=== PATIENT | male | born 1980 | race Caucasian/White ===

== ENCOUNTER 2018-03-14 23:05 | Inpatient (IN) | payer MEDICAID, OTHER ==
--- NOTE | 2018-03-15 01:44 | ED ---
Psych HPI - General Chief Complaint: Psychiatric Symptoms Stated Complaint: Suicidal Time Seen by Provider: 03/15/18 00:30 Source: patient Mode of arrival: ambulatory - History of Present Illness Initial Comments: This patient is a 37-year-old man who presents with complaint that he has had worsening of his depression and has been feeling suicidal. He states is been getting worse over the past number days. Today he states that he felt strong urge to jump into traffic. At one point he was also holding an knife to his neck tonight. MD Complaint: suicidal ideation, feels depressed -: days(s) Associated Psychiatric Symptoms: depression, suicidal ideation History of same: Yes Quality: constant Improves With: none Worsens With: none Associated Symptoms: denies other symptoms - Related Data Home Medications Medication Instructions Recorded Confirmed Ibuprofen [Motrin] 800 mg PO DAILY PRN 03/14/18 03/15/18 Allergies Allergy/AdvReac Type Severity Reaction Status Date / Time No Known Allergies Allergy Verified 03/15/18 03:57 Review of Systems ROS Statement: Those systems with pertinent positive or pertinent negative responses have been documented in the HPI. ROS Other: All systems not noted in ROS Statement are negative. Constitutional: Denies: fever, chills Respiratory: Denies: cough, dyspnea Cardiovascular: Denies: chest pain, palpitations Gastrointestinal: Denies: abdominal pain Musculoskeletal: Denies: back pain Skin: Denies: rash Neurological: Denies: headache Psychiatric: Reports: anxiety, depression, suicidal thoughts. Denies: auditory hallucinations, visual hallucinations, homicidal thoughts Past Medical History Past Medical History: No Reported History History of Any Multi-Drug Resistant Organisms: None Reported Past Surgical History: No Surgical Hx Reported Past Psychological History: ADD/ADHD, Anxiety Smoking Status: Current every day smoker Past Alcohol Use History: None Reported Past Drug Use History: Marijuana, Prescription Drug Abuse General Exam Limitations: no limitations General appearance: alert, in no apparent distress Head exam: Present: atraumatic, normocephalic Eye exam: Present: normal appearance. Absent: scleral icterus, conjunctival injection Respiratory exam: Present: normal lung sounds bilaterally. Absent: respiratory distress, wheezes, rales, rhonchi, stridor Cardiovascular Exam: Present: regular rate, normal rhythm, normal heart sounds. Absent: systolic murmur, diastolic murmur, rubs, gallop GI/Abdominal exam: Present: soft. Absent: distended, tenderness, guarding, rebound, mass Extremities exam: Present: normal inspection, normal capillary refill. Absent: pedal edema, calf tenderness Back exam: Present: normal inspection. Absent: CVA tenderness (R), CVA tenderness (L) Neurological exam: Present: alert Psychiatric exam: Present: depressed, suicidal ideation. Absent: anxious, flat affect, manic, homicidal ideation Skin exam: Present: warm, dry, intact, normal color. Absent: rash Course Vital Signs 03/14/18 23:07 Temperature 98.2 F Pulse Rate 60 Respiratory 20 Rate Blood Pressure 135/84 O2 Sat by Pulse 97 Oximetry Medical Decision Making - Lab Data Result diagrams: 03/16/18 07:21 03/15/18 01:56 Lab Results 03/15/18 03/15/18 Range/Units 01:56 01:56 WBC 17.8 H (3.8-10.6) k/uL RBC 5.58 (4.30-5.90) m/uL Hgb 15.5 (13.0-17.5) gm/dL Hct 46.2 (39.0-53.0) % MCV 82.8 (80.0-100.0) fL MCH 27.8 (25.0-35.0) pg MCHC 33.6 (31.0-37.0) g/dL RDW 13.0 (11.5-15.5) % Plt Count 408 (150-450) k/uL Neutrophils % 90 % Lymphocytes % 5 % Monocytes % 4 % Eosinophils % 1 % Basophils % 0 % Neutrophils # 16.1 H (1.3-7.7) k/uL Lymphocytes # 0.8 L (1.0-4.8) k/uL Monocytes # 0.7 (0-1.0) k/uL Eosinophils # 0.1 (0-0.7) k/uL Basophils # 0.1 (0-0.2) k/uL Sodium 140 (137-145) mmol/L Potassium 4.4 (3.5-5.1) mmol/L Chloride 102 (98-107) mmol/L Carbon Dioxide 28 (22-30) mmol/L Anion Gap 10 mmol/L BUN 17 (9-20) mg/dL Creatinine 0.82 (0.66-1.25) mg/dL Est GFR (CKD-EPI)AfAm >90 (>60 ml/min/1.73 sqM) Est GFR (CKD-EPI)NonAf >90 (>60 ml/min/1.73 sqM) Glucose 113 H (74-99) mg/dL Calcium 9.9 (8.4-10.2) mg/dL Disposition Clinical Impression: Mood disorder Disposition: ADMITTED IP TO THIS HOSP Condition: Fair Is patient prescribed a controlled substance at d/c from ED?: No
[2018-03-15 02:33] LABS: Basophils # (A) 0.1 k/uL (0-0.2); Basophils % (A) 0 %; Eosinophils # (A) 0.1 k/uL (0-0.7); Eosinophils % (A) 1 %; HCT 46.2 % (39.0-53.0); HGB 15.5 gm/dL (13.0-17.5); Lymphocytes # (A) 0.8 k/uL (1.0-4.8); Lymphocytes % (A) 5 %; MCH 27.8 pg (25.0-35.0); MCHC 33.6 g/dL (31.0-37.0); MCV 82.8 fL (80.0-100.0); Mean Platelet Volume 6.8; Monocytes # (A) 0.7 k/uL (0-1.0); Monocytes % (A) 4 %; Neutrophils # (A) 16.1 k/uL (1.3-7.7); Neutrophils % (A) 90 %; Platelet Count 408 k/uL (150-450); RBC 5.58 m/uL (4.30-5.90); WBC 17.8 k/uL (3.8-10.6)
[2018-03-15 02:42] LABS: Anion Gap 10 mmol/L; Blood Urea Nitrogen 17 mg/dL (9-20); Calcium 9.9 mg/dL (8.4-10.2); Carbon Dioxide 28 mmol/L (22-30); Chloride 102 mmol/L (98-107); Glucose 113 mg/dL (74-99); Potassium 4.4 mmol/L (3.5-5.1); Sodium 140 mmol/L (137-145)
[2018-03-15] MEDS ORDERED: ZIPRASIDONE 20 MG VIAL IM PRN (03:48)
[2018-03-15] MEDS ORDERED: MAG HYDROX/AL HYDROX/SIMETH 30 ML CUP PO PRN (03:48)
[2018-03-15] MEDS ORDERED: MAGNESIUM HYDROXIDE 2,400 MG/10 ML CUP PO PRN (03:48)
[2018-03-15] MEDS ORDERED: LORazepam 2 MG/ML INJ IM PRN (03:51)
[2018-03-15 04:26] VITALS: BMI 22.3
[2018-03-15 08:51] LABS: Albumin 4.2 g/dL (3.5-5.0); Total Protein 7.4 g/dL (6.3-8.2)
[2018-03-15] MEDS ORDERED: NICOTINE 14MG/24HR PATCH TRANSDERM SCH (09:00)
--- NOTE | 2018-03-15 14:26 | P.PN ---
Subjective Progress Note Date: 03/15/18 The patient is a 37 yo M w/ a PMH of polysubstance abuse, depression, Hep C, chronic lower back pain, and active tobacco abuse presented to the ED w/ suicidality. The patient noted that he felt down about his situation and had considered jumping onto incoming traffic. He denied any specific inciting event but notes that he feels he has too much on his plate. He is presently homeless and doesn't have steady employment. He actively smokes 1 PPD and uses marijuana but noted that his last illicit substance use was a few years ago when he did heroin. He doesn't have a PMD and doesn't take any medications. He endorsed depressive thoughts but otherwise denied any active complaints including suicidal ideation, SOB, chest pain, fever, chills, nausea, vomiting, dizziness, dysuria, diarrhea, or constipation. Objective - Vital Signs Vital signs: Vital Signs Temp 98.0 F 03/15/18 04:21 Pulse 94 03/15/18 04:21 Resp 16 03/15/18 04:21 BP 104/71 03/15/18 04:21 Pulse Ox 97 03/15/18 04:21 Intake & Output 03/14/18 03/15/18 03/15/18 18:59 06:59 18:59 Weight 68.549 kg - Exam General: [non toxic], [no distress], [appears at stated age], [normal weight] Derm: [no unusual rashes/lesions] [no unusual ecchymoses], [warm], [dry] Head: [atraumatic], [normocephalic], [symmetric] Eyes: [EOMI], [no lid lag], [anicteric sclera], [pupils equal round reactive to light] ENT: [Nose and ears atraumatic], [no thrush], [no pharyngeal erythema] Neck: [No thyromegaly], [no cervical lymphadenopathy], [trachea midline], [ supple] Mouth: [no lip lesion], [mucus membranes moist] Cardiovascular: [S1S2 reg], [no murmur], [positive posterior tibial pulse bilateral], [no edema], [capillary refill less than 2 seconds] Lungs: [CTA bilateral], [no rhonchi, no rales] , [no accessory muscle use] Abdominal: [soft], [ nontender to palpation], [no guarding], [no appreciable organomegaly], [normal bowel sounds] Ext: [no gross muscle atrophy], [muscle strength 5 out of 5 in all 4 extremities grossly], [no contractures], Neuro: [ CN II-XI grossly intact], [light touch intact all 4 extremities], [ finger to nose within normal limits], Psych: [Alert], [oriented], [appropriate affect] - Labs CBC & Chem 7: 03/15/18 01:56 03/15/18 01:56 Labs: Abnormal Lab Results - Last 24 Hours (Table) 03/15/18 03/15/18 03/15/18 Range/Units 01:56 01:56 08:27 WBC 17.8 H (3.8-10.6) k/uL Neutrophils # 16.1 H (1.3-7.7) k/uL Lymphocytes # 0.8 L (1.0-4.8) k/uL Glucose 113 H (74-99) mg/dL LDL Cholesterol, Calc 115 H (0-99) mg/dL HDL Cholesterol 39 L (40-60) mg/dL Assessment and Plan Plan: Tobacco abuse -Counseled on tobacco cessation -Requested a large nicotine patch. Will prescribe. Polysubstance abuse -Will order U-Tox Hx of Hep C -Never seen by GI -Will need outpatient f/u -Advised patient on importance of f/u and options available to him Depression w/ suicidal ideation -As per psychiatry Leukocytosis -No active signs of infection -Will repeat Hyperglycemia -A1C pending Thank you for allowing us to participate in the care of this patient. We will follow peripherally. Do not hesitate to contact us with questions. Someone can be reached from the [facility] hospitalist group at all hours of the day at [phone].
--- NOTE | 2018-03-15 19:02 | P.HP ---
Psychiatric H&P - . H&P Date: 03/15/18 History & Physical: Allergies Allergy/AdvReac Type Severity Reaction Status Date / Time No Known Allergies Allergy Verified 03/15/18 03:57 Vital Signs Temp 98.0 F 03/15/18 04:21 Pulse 94 03/15/18 04:21 Resp 16 03/15/18 04:21 BP 104/71 03/15/18 04:21 Pulse Ox 97 03/15/18 04:21 Intake & Output 03/14/18 03/15/18 03/15/18 18:59 06:59 18:59 Weight 68.549 kg Laboratory Last Values WBC 17.8 k/uL (3.8-10.6) H 03/15/18 01:56 RBC 5.58 m/uL (4.30-5.90) 03/15/18 01:56 Hgb 15.5 gm/dL (13.0-17.5) 03/15/18 01:56 Hct 46.2 % (39.0-53.0) 03/15/18 01:56 MCV 82.8 fL (80.0-100.0) 03/15/18 01:56 MCH 27.8 pg (25.0-35.0) 03/15/18 01:56 MCHC 33.6 g/dL (31.0-37.0) 03/15/18 01:56 RDW 13.0 % (11.5-15.5) 03/15/18 01:56 Plt Count 408 k/uL (150-450) 03/15/18 01:56 Neutrophils % 90 % 03/15/18 01:56 Lymphocytes % 5 % 03/15/18 01:56 Monocytes % 4 % 03/15/18 01:56 Eosinophils % 1 % 03/15/18 01:56 Basophils % 0 % 03/15/18 01:56 Neutrophils # 16.1 k/uL (1.3-7.7) H 03/15/18 01:56 Lymphocytes # 0.8 k/uL (1.0-4.8) L 03/15/18 01:56 Monocytes # 0.7 k/uL (0-1.0) 03/15/18 01:56 Eosinophils # 0.1 k/uL (0-0.7) 03/15/18 01:56 Basophils # 0.1 k/uL (0-0.2) 03/15/18 01:56 Sodium 140 mmol/L (137-145) 03/15/18 01:56 Potassium 4.4 mmol/L (3.5-5.1) 03/15/18 01:56 Chloride 102 mmol/L (98-107) 03/15/18 01:56 Carbon Dioxide 28 mmol/L (22-30) 03/15/18 01:56 Anion Gap 10 mmol/L 03/15/18 01:56 BUN 17 mg/dL (9-20) 03/15/18 01:56 Creatinine 0.82 mg/dL (0.66-1.25) 03/15/18 01:56 Est GFR (CKD-EPI)AfAm >90 (>60 ml/min/1.73 sqM) 03/15/18 01:56 Est GFR (CKD-EPI)NonAf >90 (>60 ml/min/1.73 sqM) 03/15/18 01:56 Glucose 113 mg/dL (74-99) H 03/15/18 01:56 Calcium 9.9 mg/dL (8.4-10.2) 03/15/18 01:56 Total Bilirubin 1.0 mg/dL (0.2-1.3) 03/15/18 08:27 Conjugated Bilirubin 0.0 mg/dL (0.0-0.3) 03/15/18 08:27 Unconjugated Bilirubin 1.0 mg/dL (0.0-1.1) 03/15/18 08:27 Delta Bilirubin 0.0 mg/dL (0.0-0.2) 03/15/18 08:27 AST 19 U/L (17-59) 03/15/18 08:27 ALT 21 U/L (21-72) 03/15/18 08:27 Alkaline Phosphatase 68 U/L (38-126) 03/15/18 08:27 Total Protein 7.4 g/dL (6.3-8.2) 03/15/18 08:27 Albumin 4.2 g/dL (3.5-5.0) 03/15/18 08:27 Triglycerides 137 mg/dL (<150) 03/15/18 08:27 Cholesterol 181 mg/dL (<200) 03/15/18 08:27 LDL Cholesterol, Calc 115 mg/dL (0-99) H 03/15/18 08:27 HDL Cholesterol 39 mg/dL (40-60) L 03/15/18 08:27 TSH 0.610 mIU/L (0.465-4.680) 03/15/18 08:27 03/15/18 18:57 Chief Complaint : " Suicidal attempt" HPI: The patient presented with worsening depression and suicidal attempt. Reportedly he ran into traffic to kill himself. He has been feeling very stressed out due to family and financial issues. He has been not sleeping good. He has never seen a psychiatrist. He did some heroin few days ago and has been doing marijuana on regular basis. Denies symptoms of roberto, psychoses or OCD to me. PAST PSYCHIATRIC HISTORY: Depression ALLERGIES: NO KNOWN DRUG ALLERGIES MEDICATIONS: None CHEMICAL DEPENDENCY HISTORY: Marijuana and heroin use. FAMILY PSYCHIATRIC HISTORY: Unknown SOCIAL HISTORY: The patient lives with a friend MENTAL STATUS EXAM: The patient is an average height and built male appearing his stated age. Poor eye contact. Minimally interactive. Speech soft tone. Mood depressed and anxious with congruent affect. Has suicidal ideation. No symptoms of psychoses. Has poor insight and poor judgment STRENGTHS/WEAKNESSES: Housing, Financial INTELLECTUAL FUNCTIONING: average IMPRESSIONS: [] 1. Major Depressive Disorder, severe recurrent without psychotic features PLAN: The patient has been admitted to the mental health unit in voluntarily. Will start trial of Wellbutrin XL 150 mg po qam. He will be seen by internal medicine for routine history and physical exam. Social work will meet with the patient to complete a psychosocial assessment. We will monitor him for safety and encourage participation in the milieu. Vital signs reviewed.
[2018-03-15 20:22] LABS: Hemoglobin A1C 6.2 % (4.0-6.0)
[2018-03-16 07:47] LABS: HCT 48.4 % (39.0-53.0); HGB 15.8 gm/dL (13.0-17.5); MCH 27.6 pg (25.0-35.0); MCHC 32.7 g/dL (31.0-37.0); MCV 84.5 fL (80.0-100.0); Mean Platelet Volume 6.3; Platelet Count 425 k/uL (150-450); RBC 5.73 m/uL (4.30-5.90); RDW 13.2 % (11.5-15.5); WBC 8.6 k/uL (3.8-10.6)
[2018-03-16] MEDS: buPROPion XL 150 MG TAB.ER.24H PO SCH (08:48)
[2018-03-16] MEDS: NICOTINE 21MG/24HR PATCH TRANSDERM SCH (08:48)
--- NOTE | 2018-03-16 11:52 | P.PN ---
Progress Note - Text Progress Note Date: 03/16/18 Found him still very depressed [place]. Isolating andwithdrawing. Reports worsening anxiety MENTAL STATUS EXAM: The patient is an average height and built male appearing his stated age. Poor eye contact. Minimally interactive. Speech soft tone. Mood depressed and anxious with congruent affect. Has suicidal ideation. No symptoms of psychoses. Has poor insight and poor judgment STRENGTHS/WEAKNESSES: Housing, Financial INTELLECTUAL FUNCTIONING: average IMPRESSIONS: [] 1. Major Depressive Disorder, severe recurrent without psychotic features PLAN: The patient has been admitted to the mental health unit in voluntarily. Will start trial of Wellbutrin XL 150 mg po qam. He will be seen by internal medicine for routine history and physical exam. Social work will meet with the patient to complete a psychosocial assessment. We will monitor him for safety and encourage participation in the milieu. Vital signs reviewed.
[2018-03-17] MEDS: buPROPion XL 150 MG TAB.ER.24H PO SCH (07:46)
[2018-03-17] MEDS: NICOTINE 21MG/24HR PATCH TRANSDERM SCH (07:46)
[2018-03-17] MEDS: ACETAMINOPHEN TAB 325 MG TAB PO PRN (13:46)
--- NOTE | 2018-03-17 16:52 | P.PN ---
Progress Note - Text Progress Note Date: 03/17/18 Found him feeling little better. His mood has started improving. More interactive and started going to some groups. Still reports worsening anxiety MENTAL STATUS EXAM: The patient is an average height and built male appearing his stated age. Poor eye contact. Minimally interactive. Speech soft tone. Mood depressed and anxious with congruent affect. Has suicidal ideation. No symptoms of psychoses. Has poor insight and poor judgment STRENGTHS/WEAKNESSES: Housing, Financial INTELLECTUAL FUNCTIONING: average IMPRESSIONS: [] 1. Major Depressive Disorder, severe recurrent without psychotic features PLAN: Will continue to adjust medications accordingly
[2018-03-17] MEDS: LORazepam 1 MG TAB PO PRN (16:59)
[2018-03-18] MEDS: LORazepam 1 MG TAB PO PRN ×4 (00:04→23:04)
[2018-03-18] MEDS: NICOTINE 21MG/24HR PATCH TRANSDERM SCH (08:20)
[2018-03-18] MEDS: buPROPion XL 150 MG TAB.ER.24H PO SCH (08:20)
[2018-03-18] MEDS: ACETAMINOPHEN TAB 325 MG TAB PO PRN ×2 (08:21→21:11)
--- NOTE | 2018-03-18 11:48 | P.PN ---
Progress Note - Text Progress Note Date: 03/18/18 Found him in fair mood. His mood has started improving. More interactive and started going to some groups. Still reports worsening anxiety MENTAL STATUS EXAM: The patient is an average height and built male appearing his stated age. Poor eye contact. Minimally interactive. Speech soft tone. Mood depressed and anxious with congruent affect. Has no suicidal ideation. No symptoms of psychoses. Has poor insight and poor judgment STRENGTHS/WEAKNESSES: Housing, Financial INTELLECTUAL FUNCTIONING: average IMPRESSIONS: [] 1. Major Depressive Disorder, severe recurrent without psychotic features PLAN: Will continue to adjust medications accordingly
[2018-03-19] MEDS: buPROPion XL 150 MG TAB.ER.24H PO SCH (08:13)
[2018-03-19] MEDS: NICOTINE 21MG/24HR PATCH TRANSDERM SCH (08:13)
[2018-03-19] MEDS: ACETAMINOPHEN TAB 325 MG TAB PO PRN (08:13)
[2018-03-19] MEDS: LORazepam 1 MG TAB PO PRN (08:13)
--- NOTE | 2018-03-19 12:12 | P.PN ---
Subjective Progress Note Date: 03/19/18 Principal diagnosis: Bipolar affective disorder and history of ADHD I have high anxiety and flooding of thoughts with racing thoughts. Objective - Vital Signs Vital signs: Vital Signs Temp 97.8 F 03/19/18 06:22 Pulse 66 03/19/18 06:22 Resp 16 03/19/18 06:22 BP 136/71 03/19/18 06:22 Pulse Ox 97 03/15/18 04:21 - Labs CBC & Chem 7: 03/16/18 07:21 03/15/18 01:56 Assessment and Plan (1) Bipolar 1 disorder with moderate roberto Narrative/Plan: Chief Complaint : " Suicidal attempt" HPI: The patient presented with worsening depression and suicidal attempt. Reportedly he ran into traffic to kill himself. He has been feeling very stressed out due to family and financial issues. He has been not sleeping good. He has never seen a psychiatrist. He did some heroin few days ago and has been doing marijuana on regular basis. Denies symptoms of roberto, psychoses or OCD to me. PAST PSYCHIATRIC HISTORY: Depression ALLERGIES: NO KNOWN DRUG ALLERGIES MEDICATIONS: None CHEMICAL DEPENDENCY HISTORY: Marijuana and heroin use. FAMILY PSYCHIATRIC HISTORY: Unknown SOCIAL HISTORY: The patient lives with a friend MENTAL STATUS EXAM: The patient is an average height and built male appearing his stated age. Poor eye contact. Minimally interactive. Speech soft tone. Mood depressed and anxious with congruent affect. Has suicidal ideation. No symptoms of psychoses. Has poor insight and poor judgment STRENGTHS/WEAKNESSES: Housing, Financial he is living in a motel room and needs to check out by 03/21/2018 and will go to her grandmother's after the [place] where he gets his medications at [facility] INTELLECTUAL FUNCTIONING: average Current Visit: Yes Status: Acute Code(s): F31.12 - BIPOLAR DISORD, CRNT EPISODE MANIC W/O PSYCH FEATURES, MOD SNOMED Code(s): 30288079 Plan: Lamictal 25 mg by mouth daily at bedtime, stop Wellbutrin, Catapres 0.1 mg twice a day for anxiety and PTSD Time with Patient: Less than 30
[2018-03-19] MEDS: IBUPROFEN 600 MG TAB PO PRN (16:15)
[2018-03-19] MEDS: cloNIDine HCL 0.1 MG TAB PO SCH (20:14)
[2018-03-19] MEDS ORDERED: lamoTRIgine 25 MG TAB PO SCH (21:00)
[2018-03-20 06:30] VITALS: BP 117/67; PULSE 77; RESP 18; TEMP 97.5
[2018-03-20] MEDS: NICOTINE 21MG/24HR PATCH TRANSDERM SCH (08:16)
[2018-03-20] MEDS: cloNIDine HCL 0.1 MG TAB PO SCH (08:16)
[2018-03-20] MEDS: IBUPROFEN 600 MG TAB PO PRN (08:17)
[2018-03-20] MEDS ORDERED: NICOTINE POLACRILEX 2 MG GUM BUCCAL PRN (11:06)
[2018-03-20] MEDS ORDERED: MENTHOL (NICE) LOZENGE MUCOUS MEM PRN (11:07)
--- NOTE | 2018-03-20 11:20 | P.DS ---
Providers Date of admission: 03/15/18 03:29 Expected date of discharge: 03/20/18 Attending physician: Lenny Agarwal DO Consults: 03/15/18 03:48 Consult Physician Routine Consulting Provider: Sagrario Flanagan Consult Reason/Comments: For H & P for Medical Follow Up Do you want consulting provider notified?: Yes Primary care physician: Stated None - Discharge Diagnosis(es) (1) Bipolar 1 disorder with moderate roberto Chief Complaint : " Suicidal attempt" HPI: The patient presented with worsening depression and suicidal attempt. Reportedly he ran into traffic to kill himself. He has been feeling very stressed out due to family and financial issues. He has been not sleeping good. He has never seen a psychiatrist. He did some heroin few days ago and has been doing marijuana on regular basis. Denies symptoms of roberto, psychoses or OCD to me. PAST PSYCHIATRIC HISTORY: Depression ALLERGIES: NO KNOWN DRUG ALLERGIES MEDICATIONS: None CHEMICAL DEPENDENCY HISTORY: Marijuana and heroin use. FAMILY PSYCHIATRIC HISTORY: Unknown SOCIAL HISTORY: The patient lives with a friend MENTAL STATUS EXAM: The patient is an average height and built male appearing his stated age. Poor eye contact. Minimally interactive. Speech soft tone. Mood depressed and anxious with congruent affect. Has suicidal ideation. No symptoms of psychoses. Has poor insight and poor judgment STRENGTHS/WEAKNESSES: Housing, Financial he is living in a motel room and needs to check out by 03/21/2018 and will go to her grandmother's after the [place] where he [facility] INTELLECTUAL FUNCTIONING: average 03/15/18 01:56 Labs: Abnormal Lab Results - Last 24 Hours (Table) 03/15/18 03/15/18 03/15/18 Range/Units 01:56 01:56 08:27 WBC 17.8 H (3.8-10.6) k/uL Neutrophils # 16.1 H (1.3-7.7) k/uL Lymphocytes # 0.8 L (1.0-4.8) k/uL Glucose 113 H (74-99) mg/dL LDL Cholesterol, Calc 115 H (0-99) mg/dL HDL Cholesterol 39 L (40-60) mg/dL Medical Assessment and Plan Plan: Tobacco abuse -Counseled on tobacco cessation -Requested a large nicotine patch. Will prescribe. Polysubstance abuse -Will order U-Tox Hx of Hep C -Never seen by GI -Will need outpatient f/u -Advised patient on importance of f/u and options available to him Current Visit: Yes Status: Acute Hospital Course: Client was admitted on 03/15/2018 and was formal voluntary on [place] psychiatric [place] [facility] [place] [facility] and was placed on 15 minute checks and usual protocol for the floor. He was started on mood stabilizer Lamictal 25 mg by mouth daily at bedtime, and tried on Wellbutrin without any success and stopped on 2017, was placed on Catapres 0.1 mg 3 times a day which helped decrease his anxiety. He would do well in groups, interacted with staff appropriately, and was not felt to be suicidal homicidal at the time of discharge. His plan is to go to his grandmother's house and have follow-up care and [facility]. There was more secondary gain than primary problem. Mental status examination the time of discharge: The patient presents alert, pleasant, and cooperative. There calmly seated without any agitated behavior. [He] reports that [his] mood is good. Affect is congruent and euthymic. [He] deny having any suicidal or homicidal ideation intent or plan. [He] denies any auditory or visual hallucinations. There is no evidence of any delusional thought content. [His] thought process is linear and goal-directed. [His] speech is fluent and nonpressured. [His] memory and concentration is grossly intact for the purposes of this session. Patient Condition at Discharge: Fair Plan - Discharge Summary New Discharge Prescriptions: New cloNIDine HCL [Catapres] 0.1 mg PO BID 30 Days #60 tab lamoTRIgine [LaMICtal] 25 mg PO 2100 30 Days #30 tab Menthol [Nice Cough Drops] 1 each MUCOUS MEM Q2H PRN 30 Days #60 lozenge PRN Reason: Sore Throat Discontinued Ibuprofen [Motrin] 800 mg PO DAILY PRN PRN Reason: Pain Discharge Medication List Menthol [Nice Cough Drops] 1 each MUCOUS MEM Q2H PRN 30 Days #60 lozenge [Rx] cloNIDine HCL [Catapres] 0.1 mg PO BID 30 Days #60 tab 03/20/18 [Rx] lamoTRIgine [LaMICtal] 25 mg PO 2100 30 Days #30 tab 03/20/18 [Rx] Follow up Appointment(s)/Referral(s): other,other\\ [Other] - 1 Week [facility] [NON-STAFF] - 1 Week Patient Instructions/Handouts: How to Stop Smoking (GEN), Bipolar Disorder (GEN ) Activity/Diet/Wound Care/Special Instructions: Activity and diet as tolerated. Avoid the use of street drugs and alcohol. Take all medications as prescribed. When you are in need of refills on your medications please contact your medical provider and/or outpatient psychiatrist to have this done. Please go to scheduled outpatient appointment for aftercare treatment. If symptoms return or become worse, call the crisis line at [phone] and/or go to the nearest emergency room for evaluation. Discharge Disposition: HOME SELF-CARE
== END 2018-03-20 13:11 | disposition home or self-care (01) | DRG 885 ==
LOC: EC 23:05 → 3MHU 03-15 03:29
PROVIDERS: ADMIT Psychiatry & Neurology Psychiatry; ATTEND Psychiatry & Neurology Psychiatry
DX: F31.2 Bipolar disorder, current episode manic severe with psychotic features (principal); R45.851 Suicidal ideations; F17.200 Nicotine dependence, unspecified, uncomplicated; F41.9 Anxiety disorder, unspecified; Z59.0 Homelessness; Z79.1 Long term (current) use of non-steroidal anti-inflammatories (NSAID); R73.9 Hyperglycemia, unspecified; F90.9 Attention-deficit hyperactivity disorder, unspecified type; B19.20 Unspecified viral hepatitis C without hepatic coma
CPT/HCPCS: 36415; 80048; 80061; 80076; 82075; 83036; 84443; 85025; 85027; 99285

== ENCOUNTER 2019-11-13 14:10 | Emergency (ER) | payer OTHER ==
[2019-11-13 14:18] VITALS: BP 131/83; PULSE 78; RESP 17; TEMP 100.1
[2019-11-13] MEDS ORDERED: SODIUM CHLORIDE 0.9% 500 ML 500 ML IV STA (14:20)
[2019-11-13 15:25] LABS: Basophils # (A) 0.1 k/uL (0-0.2); Basophils % (A) 1 %; Eosinophils # (A) 0.1 k/uL (0-0.7); Eosinophils % (A) 1 %; HCT 42.9 % (39.0-53.0); Lymphocytes # (A) 2.3 k/uL (1.0-4.8); Lymphocytes % (A) 27 %; MCHC 32.7 g/dL (31.0-37.0); MCV 79.4 fL (80.0-100.0); Mean Platelet Volume 6.7; Monocytes # (A) 0.6 k/uL (0-1.0); Monocytes % (A) 7 %; Neutrophils # (A) 5.2 k/uL (1.3-7.7); Neutrophils % (A) 61 %; Platelet Count 399 k/uL (150-450); RDW 14.5 % (11.5-15.5); WBC 8.6 k/uL (3.8-10.6)
--- NOTE | 2019-11-13 15:34 | XR ---
EXAMINATION TYPE: XR KUB DATE OF EXAM: 11/13/2019 COMPARISON: NONE HISTORY: Pain TECHNIQUE: Single supine KUB image of the abdomen is obtained FINDINGS: Small bowel demonstrates no evidence for dilatation or air fluid levels. Gas and fecal material is seen in non-distended colon. No convincing evidence for pneumoperitoneum. No unusual calcifications. The lung bases are clear. The osseous structures are intact. IMPRESSION: 1. Overall nonobstructive bowel gas pattern.
[2019-11-13] MEDS ORDERED: INSULIN REGULAR 100 UNIT/ML VIAL IV ONE (15:35)
[2019-11-13 15:36] LABS: Amphetamine Screen,Urine Not Detected (NotDetected); Barbiturate Screen,Urine Not Detected (NotDetected); Benzodiazepines Screen,Urine Not Detected (NotDetected); Cocaine Screen,Urine Not Detected (NotDetected); Methadone Screen, Urine Not Detected (NotDetected); Opiate Screen,Urine Not Detected (NotDetected); Oxycodone Screen, Urine Not Detected (NotDetected); Phencyclidine Screen,Urine Not Detected (NotDetected); Tricyclic Antidepressant,Urine Not Detected (NotDetected); Urn Cannabinoid Scrn Not Detected (NotDetected)
[2019-11-13 15:37] LABS: ALT 35 U/L (4-49); AST 24 U/L (17-59); Acetaminophen <10.0 ug/mL; African American GFR (CKD) >90 (>60 ml/min/1.73 sqM); Albumin 3.9 g/dL (3.5-5.0); Alcohol <10 mg/dL; Alkaline Phosphatase 78 U/L (38-126); Anion Gap 7 mmol/L; Blood Urea Nitrogen 19 mg/dL (9-20); Calcium 9.2 mg/dL (8.4-10.2); Carbon Dioxide 26 mmol/L (22-30); Chloride 104 mmol/L (98-107); Creatine Kinase 38 U/L (55-170); Glucose 91 mg/dL (74-99); Non-African American GFR(CKD) >90 (>60 ml/min/1.73 sqM); Potassium 3.8 mmol/L (3.5-5.1); Salicylate <1.0 mg/dL; Sodium 137 mmol/L (137-145); Total Bilirubin 0.5 mg/dL (0.2-1.3); Total Protein 6.9 g/dL (6.3-8.2)
--- NOTE | 2019-11-13 16:44 | ED ---
Recheck HPI - General Chief Complaint: Recheck/Abnormal Lab/Rx Stated Complaint: poss overdose Time Seen by Provider: 11/13/19 14:16 Source: patient, police, EMS Mode of arrival: EMS - History of Present Illness Initial Comments: 39-year-old IV drug user presented for possible overdose. Patient was found in his cell by officer and nexted sternal rubs to be aroused patient states that the drugs that he got were from when he was originally arrested he states he swallowed a bag of heroin that most likely had fentanyl in it. Patient states he believes the bag burst inside of him. Patient is alert and oriented 4 in arrival he does not need a sternal rub to be aroused he is awake and alert. Patient laughs and states he is just high. Denies additional complaints. Pt has no other complaints. He is accompanied by deputy who confirms that he was told the same story by the patient. - Related Data Previous Rx's Medication Instructions Recorded Menthol [Nice Cough Drops] 1 each MUCOUS MEM Q2H PRN 30 Days 03/20/18 #60 lozenge cloNIDine HCL [Catapres] 0.1 mg PO BID 30 Days #60 tab 03/20/18 lamoTRIgine [LaMICtal] 25 mg PO 2100 30 Days #30 tab 03/20/18 Allergies Allergy/AdvReac Type Severity Reaction Status Date / Time No Known Allergies Allergy Verified 03/15/18 03:57 Review of Systems ROS Statement: Those systems with pertinent positive or pertinent negative responses have been documented in the HPI. ROS Other: All systems not noted in ROS Statement are negative. Past Medical History Past Medical History: No Reported History Additional Past Medical History / Comment(s): Diagnosed + Hep C 2014 History of Any Multi-Drug Resistant Organisms: None Reported Past Surgical History: No Surgical Hx Reported Past Psychological History: ADD/ADHD, Anxiety Smoking Status: Current every day smoker Past Alcohol Use History: None Reported Past Drug Use History: Heroin, Marijuana, Prescription Drug Abuse General Exam - General Exam Comments Initial Comments: General: The patient is awake and alert, in no distress, and does not appear acutely ill. Eye: +3 mm pupils are equal, round and reactive to light, extra-ocular movements are intact. No nystagmus. There is normal conjunctiva bilaterally. No signs of icterus. Ears, nose, mouth and throat: There are moist mucous membranes and no oral lesions. Neck: The neck is supple, there is no tenderness or JVD. Cardiovascular: There is a regular rate and rhythm. No murmur, rub or gallop is appreciated. Respiratory: Lungs are clear to auscultation, respirations are non-labored, breath sounds are equal. No wheezes, stridor, rales, or rhonchi. Musculoskeletal: Normal ROM, no tenderness. Strength 5/5. Sensation intact. Pulses equal bilaterally 2+. Neurological: A&O x 3. CN II-XII intact, There are no obvious motor or sensory deficits. Coordination appears grossly intact. Speech is normal. Skin: Skin is warm and dry and no rashes or lesions are noted. Psychiatric: Cooperative, appropriate mood & affect, normal judgment. Course Vital Signs 11/13/19 14:12 Temperature 100.1 F H Pulse Rate 78 Respiratory 17 Rate Blood Pressure 131/83 O2 Sat by Pulse 100 Oximetry - Reevaluation(s) Reevaluation #1: Monitoring patient in ER for delayed drowsiness/respiratory suppression--no evidence on current exam. Medical Decision Making - Medical Decision Making Labs stable. Patient alert and oriented does not appear acutely intoxicated. Patient initiated was brought in under arrest, but during visit family member posted bail and deputies left. As patient has remained AAOX4 and does not appear acutely intoxicated-- he requested AMA form and was attempting to rip out own IV. Patient left AMA as we did not finish monitoring patient for delayed response. Patient aware of risk of disability, delayed respiratory suppression and . He left and then asked for a tourniquet on the way out from the nurse. Ventricular rate 72 bpm, LA interval and 56 ms, QS confucianist 88 ms, QT/QTC 90/427 ms. This is normal sinus no ST elevation or depression is appreciated. - Lab Data Result diagrams: 11/13/19 15:04 11/13/19 15:04 Lab Results 11/13/19 11/13/19 11/13/19 Range/Units 15:04 15:04 15:04 WBC 8.6 (3.8-10.6) k/uL RBC 5.40 (4.30-5.90) m/uL Hgb 14.0 (13.0-17.5) gm/dL Hct 42.9 (39.0-53.0) % MCV 79.4 L (80.0-100.0) fL MCH 26.0 (25.0-35.0) pg MCHC 32.7 (31.0-37.0) g/dL RDW 14.5 (11.5-15.5) % Plt Count 399 (150-450) k/uL Neutrophils % 61 % Lymphocytes % 27 % Monocytes % 7 % Eosinophils % 1 % Basophils % 1 % Neutrophils # 5.2 (1.3-7.7) k/uL Lymphocytes # 2.3 (1.0-4.8) k/uL Monocytes # 0.6 (0-1.0) k/uL Eosinophils # 0.1 (0-0.7) k/uL Basophils # 0.1 (0-0.2) k/uL Sodium 137 (137-145) mmol/L Potassium 3.8 (3.5-5.1) mmol/L Chloride 104 (98-107) mmol/L Carbon Dioxide 26 (22-30) mmol/L Anion Gap 7 mmol/L BUN 19 (9-20) mg/dL Creatinine 0.75 (0.66-1.25) mg/dL Est GFR (CKD-EPI)AfAm >90 (>60 ml/min/1.73 sqM) Est GFR (CKD-EPI)NonAf >90 (>60 ml/min/1.73 sqM) Glucose 91 (74-99) mg/dL Plasma Lactic Acid Cl (0.7-2.0) mmol/L Calcium 9.2 (8.4-10.2) mg/dL Total Bilirubin 0.5 (0.2-1.3) mg/dL AST 24 (17-59) U/L ALT 35 (4-49) U/L Alkaline Phosphatase 78 (38-126) U/L Creatine Kinase 38 L (55-170) U/L Total Protein 6.9 (6.3-8.2) g/dL Albumin 3.9 (3.5-5.0) g/dL Salicylates <1.0 mg/dL Urine Opiates Screen Not Detected (NotDetected) Ur Oxycodone Screen Not Detected (NotDetected) Urine Methadone Screen Not Detected (NotDetected) Ur Propoxyphene Screen Not Detected (NotDetected) Acetaminophen <10.0 ug/mL Ur Barbiturates Screen Not Detected (NotDetected) U Tricyclic Antidepress Not Detected (NotDetected) Ur Phencyclidine Scrn Not Detected (NotDetected) Ur Amphetamines Screen Not Detected (NotDetected) U Methamphetamines Scrn Not Detected (NotDetected) U Benzodiazepines Scrn Not Detected (NotDetected) Urine Cocaine Screen Not Detected (NotDetected) U Marijuana (THC) Screen Not Detected (NotDetected) Serum Alcohol <10 mg/dL 11/13/19 Range/Units 15:04 WBC (3.8-10.6) k/uL RBC (4.30-5.90) m/uL Hgb (13.0-17.5) gm/dL Hct (39.0-53.0) % MCV (80.0-100.0) fL MCH (25.0-35.0) pg MCHC (31.0-37.0) g/dL RDW (11.5-15.5) % Plt Count (150-450) k/uL Neutrophils % % Lymphocytes % % Monocytes % % Eosinophils % % Basophils % % Neutrophils # (1.3-7.7) k/uL Lymphocytes # (1.0-4.8) k/uL Monocytes # (0-1.0) k/uL Eosinophils # (0-0.7) k/uL Basophils # (0-0.2) k/uL Sodium (137-145) mmol/L Potassium (3.5-5.1) mmol/L Chloride (98-107) mmol/L Carbon Dioxide (22-30) mmol/L Anion Gap mmol/L BUN (9-20) mg/dL Creatinine (0.66-1.25) mg/dL Est GFR (CKD-EPI)AfAm (>60 ml/min/1.73 sqM) Est GFR (CKD-EPI)NonAf (>60 ml/min/1.73 sqM) Glucose (74-99) mg/dL Plasma Lactic Acid Cl 1.2 (0.7-2.0) mmol/L Calcium (8.4-10.2) mg/dL Total Bilirubin (0.2-1.3) mg/dL AST (17-59) U/L ALT (4-49) U/L Alkaline Phosphatase (38-126) U/L Creatine Kinase (55-170) U/L Total Protein (6.3-8.2) g/dL Albumin (3.5-5.0) g/dL Salicylates mg/dL Urine Opiates Screen (NotDetected) Ur Oxycodone Screen (NotDetected) Urine Methadone Screen (NotDetected) Ur Propoxyphene Screen (NotDetected) Acetaminophen ug/mL Ur Barbiturates Screen (NotDetected) U Tricyclic Antidepress (NotDetected) Ur Phencyclidine Scrn (NotDetected) Ur Amphetamines Screen (NotDetected) U Methamphetamines Scrn (NotDetected) U Benzodiazepines Scrn (NotDetected) Urine Cocaine Screen (NotDetected) U Marijuana (THC) Screen (NotDetected) Serum Alcohol mg/dL Disposition Clinical Impression: Overdose Disposition: Left Against Medical Advice Condition: Undetermined Instructions (If sedation given, give patient instructions): Opioid Use Disorder (ED) Is patient prescribed a controlled substance at d/c from ED?: No Referrals: None,Stated [Primary Care Provider] - 1-2 days Time of Disposition: 16:43
== END 2019-11-13 16:55 | disposition left against medical advice (07) ==
LOC: EC 14:10
DX: T65.91XA Toxic effect of unspecified substance, accidental (unintentional), initial encounter (principal); F17.200 Nicotine dependence, unspecified, uncomplicated
CPT/HCPCS: 36415; 93005; 80053; 82550; 83605; 85025; 80306; 83520; 74018; 99284; G0480 ×2; 80320; 80329